=== PATIENT | female | born 1995 | race Hispanic/Latino ===

== ENCOUNTER 2019-12-22 13:09 | Emergency (ER) | payer OTHER, MEDICAID, SELFPAY ==
[2019-12-22 13:27] VITALS: BP 142/71; PULSE 67; RESP 14; O2SAT 100; BMI 25.3
--- NOTE | 2019-12-22 15:02 | ED.DENTAL ---
HPI - Dental/Oral <YOON Phillip - Last Filed: 12/22/19 15:05> General Chief complaint: Dental/Oral Stated complaint: infection on right side of gum by tooth Time Seen by Provider: 12/22/19 14:28 Source: patient Mode of arrival: Ambulatory Limitations: no limitations History of Present Illness HPI Narrative: The patient is a 24-year-old female nonsmoker with history of anxiety who presents with her friend for chief complaint of a possible dental infection. She started having pain and swelling on her lower right jaw below her closest molar. This started about 1 month ago, and then her boyfriend noticed drainage from it so she came to the emergency department. She is trying to follow up with a dentist, but has difficulty because she does not have dental insurance so she plans on following up with [facility]. She denies any fevers nausea vomiting or diarrhea. She denies any signs of systemic illness. Related Data Home Medications Medication Instructions Recorded Confirmed albuterol sulfate [Ventolin HFA] INH #0 ea 02/04/16 Previous Rx's Medication Instructions Recorded penicillin V potassium 500 mg PO QID 10 Days #40 tab 12/22/19 Allergies Allergy/AdvReac Type Severity Reaction Status Date / Time No Known Drug Allergies Allergy Verified 12/22/19 13:27 Review of Systems <YOON Phillip - Last Filed: 12/22/19 15:05> Review of Systems Narrative: GENERAL: Denies chills, fatigue, malaise, fever, sweats. HEENT: See HPI RESPIRATORY: Denies dyspnea, cough, wheezing, hemoptysis, sputum. CARDIOVASCULAR: Denies chest pain, palpitations, orthopnea, edema, GASTROINTESTINAL: Denies nausea, vomiting, abdominal pain, diarrhea, constipation, melena. : Denies dysuria, frequency, incontinence, hematuria, urinary retention. MUSCULOSKELETAL: denies weakness, joint pain, or bony pain SKIN: Denies rash, skin lesions, or other NEUROLOGIC: Denies weakness, headache, numbness, change in speech, confusion, seizures, incoordination. PSYCHIATRIC: No concerning psychosocial issues. 12 point review of systems is negative except for those stated above Exam <YOON Phillip - Last Filed: 12/22/19 15:05> Narrative Exam Narrative: GENERAL: This is a well-nourished, well-developed patient, in no acute distress HEAD: Atraumatic. Normocephalic. No temporal or scalp tenderness. EYES: Pupils equal round and reactive. Extraocular motions intact. No scleral icterus. No injection or drainage. ENT: Nose without bleeding, purulent drainage or septal hematoma. Throat without erythema, tonsillar hypertrophy or exudate. Uvula midline. Airway patent. Good dentition. Swelling and erythema noted lower right gum by fore most molar. No obvious drainage noted. Pain to palpation. NECK: Trachea midline. No JVD or lymphadenopathy. Supple, nontender, no meningeal signs. CARDIOVASCULAR: Regular rate and rhythm RESPIRATORY: Clear to auscultation. Breath sounds equal bilaterally. No wheezes, rales, or rhonchi. No cough. No increased respiratory effort. No accessory muscle use. GASTROINTESTINAL: Abdomen soft, non-tender, nondistended. No hepato-splenomegaly, or palpable masses. No guarding. EXTREMITIES: No clubbing, cyanosis, or edema. No joint tenderness, effusion, or edema noted. BACK: Nontender without deformity or crepitance. No flank tenderness. NEURO: AOx3. SKIN: No rash or erythema. Initial Vital Signs Initial Vital Signs: Vital Signs Pulse Rate 67 12/22/19 13:27 Respiratory Rate 14 12/22/19 13:27 Blood Pressure 142/71 H 12/22/19 13:27 Pulse Oximetry 100 12/22/19 13:27 <Roddy Lorenz MD - Last Filed: 12/23/19 07:17> Initial Vital Signs Initial Vital Signs: Vital Signs Pulse Rate 67 12/22/19 13:27 Respiratory Rate 14 12/22/19 13:27 Blood Pressure 142/71 H 12/22/19 13:27 Pulse Oximetry 100 12/22/19 13:27 Course <SERGEY Phillip - Last Filed: 12/22/19 15:05> Vital Signs Vital signs: Vital Signs - 8 hr 12/22/19 13:27 Pulse Rate 67 Respiratory Rate 14 Blood Pressure 142/71 H Pulse Oximetry 100 <Roddy Lorenz MD - Last Filed: 12/23/19 07:17> Vital Signs Vital signs: Vital Signs - 8 hr 12/22/19 13:27 Pulse Rate 67 Respiratory Rate 14 Blood Pressure 142/71 H Pulse Oximetry 100 [facility] - Dental/Oral <Viky Ledezma, ACRYLIC FABRICATOR-BC - Last Filed: 12/22/19 15:05> [facility] Narrative Medical decision making narrative: The patient is a 24-year-old female who presents with a chief complaint of dental pain and swelling. Exam indicates dental infection. Will treat her penicillin. She has no signs of systemic illness, is afebrile in the emergency department appears well an acts well. I discussed at length the importance of follow-up with primary care provider as well as a dentist. Encouraged [id number] medications as needed and able as well as ice packs. Patient has no questions or concerns upon discharge and states understanding of return precautions as well as follow-up care. Discharge Plan Departure Patient Disposition: Home Clinical Impression: Dental infection Discharge Date/Time: 12/22/19 15:08 Instructions: Tooth Abscess, DI for Dental Pain Activity Restrictions/Additional Instructions: Thank you for trusting us with your care today I sent a prescription of penicillin to [facility] Please take this with probiotic or yogurt to help avoid yeast infection Please follow-up with primary care provider. I have given contact information [facility] health human resources manager Stephen need to find a primary care provider. I also suggest that you follow-up with a dentist. If you do not have dental insurance, [facility] and [facility] are great resources Prescriptions: New penicillin V potassium 500 mg tablet 500 mg PO QID 10 Days Qty: 40 RF: 0 No Action albuterol sulfate [Ventolin HFA] 90 mcg/actuation HFA aerosol inhaler INH Qty: 0 RF: 0 Referrals: [facility] [Outside]
[2019-12-22 15:07] VITALS: BP 122/74; PULSE 73; RESP 16; O2SAT 98
== END 2019-12-22 15:08 | disposition home or self-care (01) ==
PROVIDERS: Emergency Provider Nurse Practitioner Family
DX: K04.7 Periapical abscess without sinus (principal)
CPT/HCPCS: 99281

== ENCOUNTER 2021-02-18 15:15 | Outpatient (RCR) | payer OTHER, MEDICAID, SELFPAY ==
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
== END 2021-02-19 13:46 | disposition home or self-care (01) ==
LOC: PHYS 15:15
PROVIDERS: Family Provider Family Medicine Sports Medicine; PCP Family Medicine Sports Medicine; Referring Provider Family Medicine; Visit Provider Family Medicine
DX: N94.10 Unspecified dyspareunia (principal)
CPT/HCPCS: 97110; 97140; 97162; 97535

== ENCOUNTER 2021-03-07 22:55 | Outpatient (CLI) | payer OTHER, MEDICAID, SELFPAY | END 2021-03-08 00:32 | disposition home or self-care (01) | LOC: LABOR 23:00 → OB 03-09 13:12 | PROVIDERS: Family Provider Family Medicine Sports Medicine; PCP Family Medicine Sports Medicine; Referring Provider Obstetrics & Gynecology; Visit Provider Obstetrics & Gynecology | DX: O26.893 Other specified pregnancy related conditions, third trimester (principal); M54.9 Dorsalgia, unspecified; Z3A.38 38 weeks gestation of pregnancy | CPT/HCPCS: 59025; G0378; G0379 ==

== ENCOUNTER 2021-04-17 18:55 | Emergency (ER) | payer OTHER, MEDICAID, SELFPAY ==
[2021-04-17 19:18] VITALS: BP 114/74; PULSE 86; RESP 15; TEMP 38.1; O2SAT 99; BMI 25.7
[2021-04-17 20:54] LABS: Add Manual Diff / Slide Review NO; Basophils Absolute Auto 0 /uL (0-100); Basophils Percent Auto 0.4 % (0-2); Eosinophils Absolute Auto 200 /uL (0-450); Eosinophils Percent Auto 1.3 % (2-4); Hematocrit 40.1 % (36-46); Hemoglobin 12.6 g/dL (12.0-16.0); Lymphocytes Absolute Auto 2400 /uL (1100-4500); Lymphocytes Percent Auto 17.1 % (25-40); Mean Corpuscular HGB Conc 31.3 % (30-36); Mean Corpuscular Hemoglobin 24.3 PG (26-34); Mean Corpuscular Volume 77.7 fL (80-100); Monocytes Absolute Auto 1100 /uL (0-900); Monocytes Percent Auto 8.1 % (3-14); Neutrophils Absolute Auto 10100 /uL (1500-7000); Neutrophils Percent Auto 73.1 % (50-75); Platelet Count 309 X10^3/uL (150-400); Red Blood Cell Count 5.16 X10^6/uL (4.0-5.2); Red Cell Distribution Width 17.7 % (11.6-14.8); White Blood Cell Count 13.8 X10^3/uL (4.5-11.0)
[2021-04-17 20:59] LABS: Alanine Aminotransferase 50 IU/L (<35); Albumin 4.4 g/dL (3.5-5.0); Albumin Globulin Ratio 1.3 (1.0-2.8); Alkaline Phosphatase 124 U/L (38-126); Aspartate Aminotransferase 40 IU/L (14-36); BUN Creatinine Ratio 14.9 (6-22); Bilirubin Total 0.2 mg/dL (0.2-1.3); Blood Urea Nitrogen 10 mg/dL (7-17); Calcium 9.5 mg/dL (8.4-10.2); Carbon Dioxide 29 mmol/L (22-32); Chloride 101 mmol/L (98-107); Estimated Glomerular Filt Rate > 60.0 mL/min (>60); Globulin 3.5 g/dL (1.7-4.1); Glucose 95 mg/dL (70-100); HEMOLYSIS < 15 (0-50); Sodium 138 mmol/L (137-145); Total Protein 7.9 g/dL (6.3-8.2)
--- NOTE | 2021-04-17 21:51 | PC.NURSE ---
Left breast redness and tenderness, is breast feeding.
--- NOTE | 2021-04-17 22:27 | DI.US.S_ITS ---
PROCEDURE: US BREAST LT LIMITED COMPARISON: None. INDICATIONS: PAIN, SWELLING, AND FEVER. X 5 WEEKS. FINDINGS: Heterogeneous breast tissue in the retroareolar region between 6 -12 o'clock without focal mass or focal fluid collection. Mild hyperemia. At the 10 o'clock axis, 10 cm from the nipple, there is a circumscribed wider than tall hypoechoic cyst with internal septations and internal echoes measuring 0.8 x 0.7 x 0.6 cm. Otherwise, no suspicious mass, abnormal fluid collection, or disturbed parenchymal echotexture. IMPRESSION: Heterogeneous retroareolar soft tissue with associated hyperemia. No abscess noted. Findings may be related to early mastitis. Recommend clinical follow-up. Recommend short interval follow-up ultrasound in 1 month to document resolution of findings. Probably benign minimally complicated cyst at 10 o'clock 10 cm from the nipple. This is also probably benign. Recommend follow-up ultrasound in 6 months to document stability versus resolution. Dictated by: Seth Logan M.D. on 04/17/2021 at 23:17 Approved by: Seth Logan M.D. on 04/17/2021 at 23:24
[2021-04-17] MEDS: KETOROLAC 30 MG/ML VIAL 15 MG IV (22:32)
[2021-04-17] MEDS: AMOXICILLIN/CLAV 875/125 MG 1 TAB PO (23:19)
[2021-04-17 23:25] VITALS: BP 99/54; PULSE 67; RESP 15; O2SAT 99
--- NOTE | 2021-04-18 07:35 | ED_ITS ---
HPI - Fever General Chief Complaint: Fever Stated Complaint: thinks infection from breast feeding Time Seen by Provider: 04/17/21 22:07 Source: patient Mode of arrival: Ambulatory Limitations: no limitations History of Present Illness HPI Narrative: 18-year-old female nonsmoker with history of asthma presents with her infant and a family friend and a chief complaint of severe left breast pain and swelling over the past few days. She has had a subjective fever and chills but has continued to breast-feed through her symptoms. She is not dizzy nor weak or lightheaded. She denies any shortness of breath or cough. Related Data Home Medications Medication Instructions Recorded Confirmed albuterol sulfate 90 mcg/actuation INH #0 ea 02/04/16 aerosol inhaler (Ventolin HFA) Previous Rx's Medication Instructions Recorded amoxicillin 875 mg-potassium 1 tab PO BID #20 tab 04/17/21 clavulanate 125 mg tablet (Augmentin) Allergies Allergy/AdvReac Type Severity Reaction Status Date / Time No Known Drug Allergies Allergy Verified 12/22/19 13:27 Review of Systems Review of Systems Narrative: GENERAL: Denies chills, fatigue, malaise, fever, sweats. HEENT: Denies sinus pain, ear pain, sore throat, difficulty swallowing, dizziness. RESPIRATORY: Denies dyspnea, cough, wheezing, hemoptysis, sputum. CARDIOVASCULAR: Denies chest pain, palpitations, orthopnea, edema, GASTROINTESTINAL: Denies nausea, vomiting, abdominal pain, diarrhea, constipation, melena. : Denies dysuria, frequency, incontinence, hematuria, urinary retention. MUSCULOSKELETAL: denies weakness, joint pain, or bony pain SKIN: See HPI NEUROLOGIC: Denies weakness, headache, numbness, change in speech, confusion, seizures, incoordination. PSYCHIATRIC: No concerning psychosocial issues. 12 point review of systems is negative except for those stated above Patient History Social History Smoking Status: Never smoker Smoking Status: Never smoker Substance Use Type: does not use Exam Narrative Exam Narrative: GEN: AOx3 and in mild distress EYES: Pupils are equal, round, and reactive to light and accommodation. Extraoccular muscles are intact bilaterally. There is no subconjunctival hemorr mel or exudate. CHEST: Lungs are clear to auscultation bilaterally and free of wheezes, rales, or rhonchi. Heart rate is regular rhythm, there are no murmurs, clicks, rubs, or gallops. There is no chest wall tenderness. ABD: Abdomen is soft and nontender. There is no guarding or rebound. Bowel sounds are normal in all 4 quadrants. There is no mass or organomegaly. EXT: Full painless ROM of all extremities with no loss of sensation or strength. SKIN: Left breast examined with female nursing sports broadcasting internship at the bedside and patient's permission. There is no obvious erythema, fluctuance or induration but patient is very tender to palpation in the superior medial quadrant of her left breast. Initial Vital Signs Initial Vital Signs: Vital Signs Temperature 100.6 F H 04/17/21 19:18 Pulse Rate 86 04/17/21 19:18 Respiratory Rate 15 04/17/21 19:18 Blood Pressure 114/74 04/17/21 19:18 Pulse Oximetry 99 04/17/21 19:18 Course Orders Ordered: Discontinued Medications Amoxicillin/Clavulanate Potassium (Amoxicillin/Clav 875/125 Mg) 1 tab PO NOW ONE Stop: 04/17/21 23:13 Last Admin: 04/17/21 23:19 Dose: 1 tab Documented by: FEDERICO Ketorolac Tromethamine (Ketorolac 30 Mg/Ml Vial) 15 mg IV NOW ONE Stop: 04/17/21 22:28 Last Admin: 04/17/21 22:32 Dose: 15 mg Documented by: JEFFRY MDM - Fever Lab Data Result diagrams: 04/17/21 20:40 04/17/21 20:40 Labs: Lab Results 04/17/21 04/17/21 Range/Units 20:40 20:40 WBC 13.8 H (4.5-11.0) X10^3/uL RBC 5.16 (4.0-5.2) X10^6/uL Hgb 12.6 (12.0-16.0) g/dL Hct 40.1 (36-46) % MCV 77.7 L (80-100) fL MCH 24.3 L (26-34) PG MCHC 31.3 (30-36) % RDW 17.7 H (11.6-14.8) % Plt Count 309 (150-400) X10^3/uL Neut % (Auto) 73.1 (50-75) % Lymph % (Auto) 17.1 L (25-40) % [place] % (Auto) 8.1 (3-14) % Eos % (Auto) 1.3 L (2-4) % Baso % (Auto) 0.4 (0-2) % Neut # (Auto) 63462 H (2921-6024) /uL Lymph # (Auto) 2400 (5636-2304) /uL [place] # (Auto) 1100 H (0-900) /uL Eos # (Auto) 200 (0-450) /uL Baso # (Auto) 0 (0-100) /uL Sodium 138 (137-145) mmol/L Potassium 4.0 (3.4-5.1) mmol/L Chloride 101 (98-107) mmol/L Carbon Dioxide 29 (22-32) mmol/L BUN 10 (7-17) mg/dL Creatinine 0.67 (0.52-1.04) mg/dL Estimated GFR > 60.0 (>60) mL/min BUN/Creatinine Ratio 14.9 (6-22) Glucose 95 (70-100) mg/dL Calcium 9.5 (8.4-10.2) mg/dL Total Bilirubin 0.2 (0.2-1.3) mg/dL AST 40 H (14-36) IU/L ALT 50 H (<35) IU/L Alkaline Phosphatase 124 (38-126) U/L Total Protein 7.9 (6.3-8.2) g/dL Albumin 4.4 (3.5-5.0) g/dL Globulin 3.5 (1.7-4.1) g/dL Albumin/Globulin Ratio 1.3 (1.0-2.8) Imaging Data US Breast: Radiologist's Impression: [address] [address] Ultrasound Report Signed Patient: Edwina Mcfadden I MR#: [id number] : 1995 Acct:[id number] Age/Sex: 26 / F Date of Service: 04/17/21 Loc: ED Accession Number: [id number] ?? Procedure: US breast LT limited Ordering Provider: Tyshawn Mclain D.O. PROCEDURE: US BREAST LT LIMITED ? COMPARISON: None. ? INDICATIONS: PAIN, SWELLING, AND FEVER. X 5 WEEKS. ? FINDINGS: ? Heterogeneous breast tissue in the retroareolar region between 6 -12 o'clock without focal mass or focal fluid collection.? Mild hyperemia.? At the 10 o'clock axis, 10 cm from the nipple, there is a circumscribed wider than tall hypoechoic cyst with internal septations and internal echoes measuring 0.8 x 0.7 x 0.6 cm.? Otherwise, no suspicious mass, abnormal fluid collection, or disturbed parenchymal echotexture.? ? IMPRESSION: ? Heterogeneous retroareolar soft tissue with associated hyperemia.? No abscess noted.? Findings may be related to early mastitis.? Recommend clinical follow-up.? Recommend short interval follow-up ultrasound in 1 month to document resolution of findings. ? Probably benign minimally complicated cyst at 10 o'clock 10 cm from the nipple.? This is also probably benign.? Recommend follow-up ultrasound in 6 months to document stability versus resolution.? ? Dictated by: Seth Logan M.D. on 04/17/2021 at 23:17 ? ? Approved by: Seth Logan M.D. on 04/17/2021 at 23:24 ? MDM Narrative Medical decision making narrative: Patient with pain in left breast of a mother, subjective fever with slight elevation or white blood cells. Ultrasound demonstrates no abscess with suggest early mastitis. Given her elevation of white blood cells and fever we did discuss the utility of antibiotics. She understands the need to continue to breastfeed and even consider pumping through the course of this mastitis. She has had return preca utions given and questions have been answered to her apparent satisfaction Discharge Plan Departure Patient Disposition: Home Clinical Impression: Acute mastitis of left breast Instructions: DI for Mastitis Activity Restrictions/Additional Instructions: *You have been diagnosed with [left-sided mastitis. Ultrasound is very reassuring and there is no evidence of abscess. *What to do: *Please continue to take your regular medications as directed. [x ] New medication prescriptions sent to your pharmacy: [[facility]] [ ] New medication written as a paper prescription [ ] No new medications given *Please follow up with your primary care provider in 2-3 days, call for an appointment. Let them know you were seen in the Emergency Department and that we ask that you be seen in follow up. We will electronically transmit a record of today's note if your PCP is in our system *Be sure to continue to breast feed through the treatment of your mastitis *If you do not have a primary care provider please contact the [facility] Resource line at [phone]. They will ask some questions about your medical history and help get you set up with a doctor in the community. *Return to Emergency Department if you should have any new, worsening or concern ing symptoms, such as [fever greater than 101 F, shaking chills, worsening pain, persistent vomiting or other bothersome symptoms] Prescriptions: New amoxicillin-pot clavulanate [Augmentin] 875-125 mg tablet 1 tab PO BID Qty: 20 RF: 0 No Action albuterol sulfate [Ventolin HFA] 90 mcg/actuation HFA aerosol inhaler INH Qty: 0 RF: 0 Referrals: Shantanu Shine DO [Primary Care Provider] -
== END 2021-04-17 23:27 | disposition home or self-care (01) ==
PROVIDERS: Emergency Provider Emergency Medicine; Family Provider Family Medicine Sports Medicine; PCP Family Medicine Sports Medicine
DX: N61.0 Mastitis without abscess (principal)
CPT/HCPCS: 36415; 76642; 80053; 85025; 96374; 99284; J1885